=== PATIENT | female | born 1975 | race American Indian/Alaskan Native ===

== ENCOUNTER 2016-10-27 02:32 | Emergency (ER) | payer SELFPAY ==
[2016-10-27 03:24] LABS: Basophils % (Auto) 0.4 % (0.0-1.8); Eosinophils % (Auto) 1.5 % (0.0-4.3); Hematocrit 40.1 % (30.3-42.9); Hemoglobin 13.4 gm/dl (10.1-14.3); Mean Corpuscular HGB Conc 33 % (30-34); Mean Corpuscular Hemoglobin 27 pg (28-32); Mean Corpuscular Volume 82 fl (79-97); Platelet Count 303 K/mm3 (140-440); Red Cell Distribution Width 14.3 % (13.2-15.2)
[2016-10-27 03:32] LABS: INR 0.96 (0.87-1.13)
[2016-10-27 03:33] LABS: Partial Thromboplastin Time 31.4 Sec. (24.2-36.6)
[2016-10-27 03:39] LABS: Anion Gap 18 mmol/L; BUN/Creatinine Ratio 16.25; Blood Urea Nitrogen 13 mg/dL (7-17); Calcium 9.3 mg/dL (8.4-10.2); Carbon Dioxide 25 mmol/L (22-30); Chloride 104.2 mmol/L (98-107); Glucose 96 mg/dL (65-100); Potassium 3.8 mmol/L (3.6-5.0); Sodium 143 mmol/L (137-145)
[2016-10-27 03:41] LABS: Creatine Kinase MB 1.6 ng/mL (0.0-4.0)
[2016-10-27] MEDS ORDERED: TORADOL IM ONE (12:11)
--- NOTE | 2016-10-27 12:12 | Emergency Department Report ---
ED Chest Pain HPI - General Chief Complaint: Chest Pain Stated Complaint: CHEST PAIN Time Seen by Provider: 10/27/16 12:01 Source: patient, RN notes reviewed Mode of arrival: Ambulatory Limitations: No Limitations - History of Present Illness Initial Comments: This is a 41-year-old female. I have evaluated her in the past. She reports a past medical history of hypertension. She presents to the ER with right-sided chest wall pain and breast pain. The pain has been present since over 12 hours ago. It is aching, increases with palpation, deep inspiration, range of motion. It radiates to the back. There is no left-sided pain. The pain does not radiate to the arms or neck. There is no diaphoresis, there is no severe shortness of breath, there is no nausea or vomiting. There is no leg pain or leg swelling. No recent trips greater than 4 hours. No recent hospital admissions. Patient reports she is not , reports a distant history of hysterectomy. Patient reports an outpatient surgery last month for carpal tunnel release. There is no cocaine use, and the patient reports no change in exercise tolerance , and negative family history of heart disease. MD Complaint: chest pain -: Gradual Pain Location: right chest Pain Radiation: back Severity scale (0 -10): 10 Quality: aching Consistency: constant Improves With: rest Worsens With: palpation Treatments Prior to Arrival: none Aspirin use within the Past 7 Days: (0) No - Related Data On Oral Contraceptives: No Home Medications Medication Instructions Recorded Confirmed Last Taken Hydrochlorothiazide [Hctz] 12.5 mg PO QDAY 10/27/16 10/27/16 10/26/16 Previous Rx's Medication Instructions Recorded Last Taken Type Ketorolac [Toradol] 10 mg PO Q6H PRN #20 tablet 10/27/16 Unknown Rx Allergies Allergy/AdvReac Type Severity Reaction Status Date / Time Sulfa (Sulfonamide AdvReac Unknown Verified 04/23/15 03:39 Antibiotics) MILES score - Miles Score Age > 65: (0) No Aspirin use within the Past 7 Days: (0) No 3 or more CAD Risk Factors: (0) No 2 or more Angina events in past 24 hrs: (0) No Known CAD with more than 50% Stenosis: (0) No Elevated Cardiac Markers: (0) No ST Deviation Greater than 0.5mm: (0) No MILES Score: 0 ED Review of Systems ROS: Stated complaint: CHEST PAIN Other details as noted in HPI Constitutional: denies: malaise ENT: denies: dental pain, epistaxis Respiratory: see HPI Cardiovascular: chest pain Gastrointestinal: denies: abdominal pain, nausea, diarrhea Genitourinary: denies: urgency, dysuria, discharge Musculoskeletal: denies: back pain, joint swelling, arthralgia Skin: denies: rash, lesions Neurological: denies: headache, weakness, paresthesias Psychiatric: denies: anxiety, depression ED Past Medical Hx - Past Medical History Previous Medical History?: Yes Additional medical history: GERD,. Overweight - Surgical History Additional Surgical History: hysterectomy. Carpal Tunnel - Rt hand 08/2016 - Social History Smoking Status: Never Smoker Substance Use Type: Alcohol - Medications Home Medications: Home Medications Medication Instructions Recorded Confirmed Last Taken Type Hydrochlorothiazide [Hctz] 12.5 mg PO QDAY 10/27/16 10/27/16 10/26/16 History Ketorolac [Toradol] 10 mg PO Q6H PRN #20 tablet 10/27/16 Unknown Rx ED Physical Exam - General Limitations: No Limitations General appearance: alert, in no apparent distress - Head Head exam: Present: atraumatic, normocephalic - Eye Eye exam: Present: normal appearance, EOMI. Absent: nystagmus - ENT ENT exam: Present: normal exam, normal orophraynx, mucous membranes moist, normal external ear exam - Neck Neck exam: Present: normal inspection, full ROM. Absent: tenderness, meningismus - Respiratory Respiratory exam: Present: normal lung sounds bilaterally, other (the bilateral breast exam is unremarkable. There is no chest wall tenderness. There is no breast tenderness. During the breast examination, I am escorted by ER nurse Paco Adams). Absent: respiratory distress, wheezes, rales, rhonchi, stridor, chest wall tenderness, decreased breath sounds - Cardiovascular Cardiovascular Exam: Present: regular rate, normal rhythm, normal heart sounds. Absent: bradycardia, tachycardia, irregular rhythm, systolic murmur, diastolic murmur, rubs, gallop - GI/Abdominal GI/Abdominal exam: Present: soft, normal bowel sounds. Absent: distended, tenderness, guarding, rebound, rigid, pulsatile mass - Extremities Exam Extremities exam: Present: normal inspection, full ROM, normal capillary refill. Absent: tenderness, pedal edema, joint swelling, calf tenderness - Back Exam Back exam: Present: normal inspection, full ROM. Absent: tenderness, CVA tenderness (R), CVA tenderness (L), muscle spasm, paraspinal tenderness, vertebral tenderness - Neurological Exam Neurological exam: Present: alert, oriented X3, normal gait, other (Extraocular movements intact. Tongue midline. No facial droop. Facial sensation intact to light touch in the V1, V2, V3 distribution bilaterally. 5 and 5 strength in 4 extremities.. Sensation is intact to light touch in 4 extremities.). Absent : motor sensory deficit - Psychiatric Psychiatric exam: Present: normal affect, normal mood - Skin Skin exam: Present: warm, dry, intact, normal color. Absent: rash ED Course Vital Signs 10/27/16 10/27/16 10/27/16 02:36 12:07 13:51 Temperature 97.5 F L Pulse Rate 88 78 67 Respiratory 18 12 14 Rate Blood Pressure 144/105 128/90 138/94 [Right] O2 Sat by Pulse 97 100 100 Oximetry - Reevaluation(s) Reevaluation #1: 10/27/16 13:30 Differential diagnosis: Costochondritis, pleuritis, pericarditis, myocarditis, pneumonia, acute coronary syndrome, GERD, gastritis Assessment and plan: 41-year-old female with pleuritic chest pain. She is afebrile with reassuring vital signs, low risk by well's criteria, no immediate pulmonary embolus or DVT risk factors, low risk by MILES score, low risk by heart score, perc negative. D-dimer was negative, which upon is negative 3, EKG morphologically unremarkable 2, and unchanged from prior EKG. An x-ray of the chest was also negative for acute disease. Given the young age , normal EKG, normal laboratory studies, I don't believe the patient requires admission to the hospital for acute coronary syndrome risk stratification. The case is discussed with the on-call event sales manager, Dr. Saul Millan, who indicates the patient can follow-up with him in the office tomorrow for outpatient acute coronary syndrome/chest pain risk stratification. The patient understands that she is at low risk for major adverse cardiac event, and will be discharged at this time. Return precautions are reviewed. ED Medical Decision Making - Lab Data Result diagrams: 10/27/16 03:01 04/05/17 03:01 Vital Signs 10/27/16 10/27/16 02:36 12:07 Temperature 97.5 F L Pulse Rate 88 78 Respiratory 18 12 Rate Blood Pressure 144/105 128/90 [Right] O2 Sat by Pulse 97 100 Oximetry Lab Results 10/27/16 10/27/16 10/27/16 Range/Units 03:01 03:01 03:01 WBC 8.0 (4.5-11.0) K/mm3 RBC 4.90 (3.65-5.03) M/mm3 Hgb 13.4 (10.1-14.3) gm/dl Hct 40.1 (30.3-42.9) % MCV 82 (79-97) fl MCH 27 L (28-32) pg MCHC 33 (30-34) % RDW 14.3 (13.2-15.2) % Plt Count 303 (140-440) K/mm3 Lymph % (Auto) 29.7 (13.4-35.0) % [place] % (Auto) 7.7 H (0.0-7.3) % Eos % (Auto) 1.5 (0.0-4.3) % Baso % (Auto) 0.4 (0.0-1.8) % Lymph # 2.4 (1.2-5.4) K/mm3 [place] # 0.6 (0.0-0.8) K/mm3 Eos # 0.1 (0.0-0.4) K/mm3 Baso # 0.0 (0.0-0.1) K/mm3 Seg Neutrophils % 60.7 (40.0-70.0) % Seg Neutrophils # 4.8 (1.8-7.7) K/mm3 PT 12.7 (12.2-14.9) Sec. INR 0.96 (0.87-1.13) APTT 31.4 (24.2-36.6) Sec. D-Dimer (0-234) ng/mlDDU Sodium 143 (137-145) mmol/L Potassium 3.8 (3.6-5.0) mmol/L Chloride 104.2 (98-107) mmol/L Carbon Dioxide 25 (22-30) mmol/L Anion Gap 18 mmol/L BUN 13 (7-17) mg/dL Creatinine 0.8 (0.7-1.2) mg/dL Estimated GFR > 60 ml/min BUN/Creatinine Ratio 16.25 % Glucose 96 (65-100) mg/dL Calcium 9.3 (8.4-10.2) mg/dL Total Creatine Kinase (30-135) units/L CK-MB (CK-2) (0.0-4.0) ng/mL CK-MB (CK-2) Rel Index (0-4) Troponin T < 0.010 (0.00-0.029) ng/mL 10/27/16 10/27/16 10/27/16 Range/Units 03:01 06:57 08:41 WBC (4.5-11.0) K/mm3 RBC (3.65-5.03) M/mm3 Hgb (10.1-14.3) gm/dl Hct (30.3-42.9) % MCV (79-97) fl MCH (28-32) pg MCHC (30-34) % RDW (13.2-15.2) % Plt Count (140-440) K/mm3 Lymph % (Auto) (13.4-35.0) % [place] % (Auto) (0.0-7.3) % Eos % (Auto) (0.0-4.3) % Baso % (Auto) (0.0-1.8) % Lymph # (1.2-5.4) K/mm3 [place] # (0.0-0.8) K/mm3 Eos # (0.0-0.4) K/mm3 Baso # (0.0-0.1) K/mm3 Seg Neutrophils % (40.0-70.0) % Seg Neutrophils # (1.8-7.7) K/mm3 PT (12.2-14.9) Sec. INR (0.87-1.13) APTT (24.2-36.6) Sec. D-Dimer (0-234) ng/mlDDU Sodium (137-145) mmol/L Potassium (3.6-5.0) mmol/L Chloride (98-107) mmol/L Carbon Dioxide (22-30) mmol/L Anion Gap mmol/L BUN (7-17) mg/dL Creatinine (0.7-1.2) mg/dL Estimated GFR ml/min BUN/Creatinine Ratio % Glucose (65-100) mg/dL Calcium (8.4-10.2) mg/dL Total Creatine Kinase 125 (30-135) units/L CK-MB (CK-2) 1.6 (0.0-4.0) ng/mL CK-MB (CK-2) Rel Index 1.2 (0-4) Troponin T < 0.010 < 0.010 (0.00-0.029) ng/mL 10/27/16 Range/Units 12:37 WBC (4.5-11.0) K/mm3 RBC (3.65-5.03) M/mm3 Hgb (10.1-14.3) gm/dl Hct (30.3-42.9) % MCV (79-97) fl MCH (28-32) pg MCHC (30-34) % RDW (13.2-15.2) % Plt Count (140-440) K/mm3 Lymph % (Auto) (13.4-35.0) % [place] % (Auto) (0.0-7.3) % Eos % (Auto) (0.0-4.3) % Baso % (Auto) (0.0-1.8) % Lymph # (1.2-5.4) K/mm3 [place] # (0.0-0.8) K/mm3 Eos # (0.0-0.4) K/mm3 Baso # (0.0-0.1) K/mm3 Seg Neutrophils % (40.0-70.0) % Seg Neutrophils # (1.8-7.7) K/mm3 PT (12.2-14.9) Sec. INR (0.87-1.13) APTT (24.2-36.6) Sec. D-Dimer < 135 (0-234) ng/mlDDU Sodium (137-145) mmol/L Potassium (3.6-5.0) mmol/L Chloride (98-107) mmol/L Carbon Dioxide (22-30) mmol/L Anion Gap mmol/L BUN (7-17) mg/dL Creatinine (0.7-1.2) mg/dL Estimated GFR ml/min BUN/Creatinine Ratio % Glucose (65-100) mg/dL Calcium (8.4-10.2) mg/dL Total Creatine Kinase (30-135) units/L CK-MB (CK-2) (0.0-4.0) ng/mL CK-MB (CK-2) Rel Index (0-4) Troponin T (0.00-0.029) ng/mL - EKG Data -: EKG Interpreted by Me EKG shows normal: sinus rhythm Rate: normal - EKG Data When compared to previous EKG there are: no significant change 10/27/16 13:32 EKG #1 demonstrates normal sinus, 87 bpm, normal intervals, normal axis, not morphologically consistent with STEMI. EKG #2 demonstrates normal sinus, 67 bpm, normal axis, not consistent with STEMI. Both EKGs are essentially unchanged from prior EKG from 04/23/2013. - Radiology Data Radiology results: report reviewed, image reviewed X-ray of the chest is negative for acute disease Critical care attestation.: If time is entered above; I have spent that time in minutes in the direct care of this critically ill patient, excluding procedure time. ED Disposition Clinical Impression: Chest pain Disposition: DISCHARGED TO HOME OR SELFCARE Is pt being admited?: No Does the pt Need Aspirin: No Condition: Good Instructions: Chest Pain (ED), Costochondritis (ED) Additional Instructions: Laboratory studies, chest x-ray, EKG, were unremarkable. Symptoms very unlikely to be coming from acute coronary syndrome, dangerous cardiac disease. Take the pain medication as directed. Follow up with the listed event sales manager, Dr. Saul Millan tomorrow. You may either walk into the office, or contact the office and inform the office staff that I have personally spoken to Dr. Millan, and he would like to see her tomorrow as a follow-up. Please return to the ER right away with new pain, worsened pain, migration of pain, fevers or chills, nausea or vomiting, inability to tolerate liquid feeds. Prescriptions: Ketorolac [Toradol] 10 mg PO Q6H PRN #20 tablet PRN Reason: Pain Referrals: PRIMARY CAREMD [Primary Care Provider] - 3-5 Days SAUL MILLAN MD [Staff Physician] - 3-5 Days
[2016-10-27] MEDS ORDERED: TORADOL ONE (12:13)
--- NOTE | 2016-10-27 13:20 | XRay Report ---
ROUTINE CHEST, TWO VIEWS: History: Chest pain PA and lateral views demonstrate the heart and mediastinal contour to be of normal size and shape. The lungs are clear and fully expanded and the soft tissues and bony structures are normal. IMPRESSION: Normal study.
[2016-10-27 13:51] VITALS: BP 138/94
== END 2016-10-27 13:52 | disposition home or self-care (01) ==
LOC: ED 02:32
DX: R07.89 Other chest pain (principal); K21.9 Gastro-esophageal reflux disease without esophagitis; Z90.710 Acquired absence of both cervix and uterus; Z88.2 Allergy status to sulfonamides
CPT/HCPCS: 36415; 71020; 80048; 82550; 82553; 84484; 85025; 85379; 85610; 85730; 93005; 93010; 96372; 99285; J1885

== ENCOUNTER 2017-07-05 09:18 | Emergency (ER) | payer SELFPAY ==
[2017-07-05 09:45] VITALS: BP 132/93
[2017-07-05] MEDS ORDERED: TORADOL IM ONE (10:05)
[2017-07-05] MEDS ORDERED: DECADRON IM ONE (10:05)
--- NOTE | 2017-07-05 10:05 | Emergency Department Report ---
ED General Adult HPI - General Chief complaint: Extremity Problem,Nontraumatic Stated complaint: RIGHT BUTTOCK/LEG PAIN Time Seen by Provider: 07/05/17 09:50 Source: patient Mode of arrival: Ambulatory Limitations: No Limitations - History of Present Illness Initial comments: 42-year-old female with no past medical history presents to the ED complaining about right-sided lower back pain that radiates through the buttocks and down the posterior right leg for a couple days now. Patient states it is a sharp and throbbing pain with no injury. States taking medication [id number] with no relief. Denies problem ambulating or problems with bowel movements and urination. - Related Data Home Medications Medication Instructions Recorded Confirmed Last Taken Hydrochlorothiazide [Hctz] 12.5 mg PO QDAY 10/27/16 10/27/16 10/26/16 Previous Rx's Medication Instructions Recorded Last Taken Type Ketorolac [Toradol] 10 mg PO Q6H PRN #20 tablet 10/27/16 Unknown Rx Cyclobenzaprine [Flexeril] 10 mg PO TID PRN #20 tablet 07/05/17 Unknown Rx Diclofenac Sodium 75 mg PO BID #20 tablet. 07/05/17 Unknown Rx Allergies Allergy/AdvReac Type Severity Reaction Status Date / Time Sulfa (Sulfonamide AdvReac Unknown Verified 07/05/17 09:41 Antibiotics) ED Review of Systems ROS: Stated complaint: RIGHT BUTTOCK/LEG PAIN Other details as noted in HPI Constitutional: denies: chills, fever Eyes: denies: eye pain, eye discharge, vision change ENT: denies: ear pain, throat pain Respiratory: denies: cough, shortness of breath, wheezing Cardiovascular: denies: chest pain, palpitations Endocrine: no symptoms reported Gastrointestinal: denies: abdominal pain, nausea, diarrhea Genitourinary: denies: urgency, dysuria, discharge Musculoskeletal: back pain. denies: joint swelling, arthralgia Skin: denies: rash, lesions Neurological: denies: headache, weakness, paresthesias Psychiatric: denies: anxiety, depression Hematological/Lymphatic: denies: easy bleeding, easy bruising ED Past Medical Hx - Past Medical History Previous Medical History?: Yes Additional medical history: GERD,. Overweight - Surgical History Past Surgical History?: Yes Additional Surgical History: hysterectomy. Carpal Tunnel - Rt hand 08/2016. L knee and L ankle surgery - Social History Smoking Status: Never Smoker Substance Use Type: Alcohol - Medications Home Medications: Home Medications Medication Instructions Recorded Confirmed Last Taken Type Hydrochlorothiazide [Hctz] 12.5 mg PO QDAY 10/27/16 10/27/16 10/26/16 History Ketorolac [Toradol] 10 mg PO Q6H PRN #20 tablet 10/27/16 Unknown Rx Cyclobenzaprine [Flexeril] 10 mg PO TID PRN #20 tablet 07/05/17 Unknown Rx Diclofenac Sodium 75 mg PO BID #20 tablet. 07/05/17 Unknown Rx ED Physical Exam - General Limitations: No Limitations General appearance: alert, in no apparent distress - Head Head exam: Present: atraumatic, normocephalic - Eye Eye exam: Present: normal appearance - ENT ENT exam: Present: mucous membranes moist - Neck Neck exam: Present: normal inspection - Respiratory Respiratory exam: Present: normal lung sounds bilaterally. Absent: respiratory distress - Cardiovascular Cardiovascular Exam: Present: regular rate, normal rhythm. Absent: systolic murmur, diastolic murmur, rubs, gallop - GI/Abdominal GI/Abdominal exam: Present: soft, normal bowel sounds - Extremities Exam Extremities exam: Present: normal inspection - Back Exam Back exam: Present: normal inspection, tenderness, paraspinal tenderness, other (tenderness to palpation over the right buttocks.. Positive straight leg raise , right). Absent: vertebral tenderness - Neurological Exam Neurological exam: Present: alert, oriented X3 - Psychiatric Psychiatric exam: Present: normal affect, normal mood - Skin Skin exam: Present: warm, dry, intact, normal color. Absent: rash ED Course Vital Signs 07/05/17 09:41 Temperature 97.7 F Pulse Rate 88 Respiratory 18 Rate Blood Pressure 132/93 O2 Sat by Pulse 98 Oximetry ED Medical Decision Making - Medical Decision Making Patient to be given Toradol and Decadron in the ED with a medicine to go home with. No acute distress at this time. Symptoms appear to be consistent with sciatica. Critical care attestation.: If time is entered above; I have spent that time in minutes in the direct care of this critically ill patient, excluding procedure time. ED Disposition Clinical Impression: Right sided sciatica Disposition: DC-01 TO HOME OR SELFCARE Is pt being admited?: No Does the pt Need Aspirin: No Condition: Good Instructions: Sciatica (ED) Prescriptions: Cyclobenzaprine [Flexeril] 10 mg PO TID PRN #20 tablet PRN Reason: Muscle Spasm Diclofenac Sodium 75 mg PO BID #20 tablet.dr Referrals: MEHUL MARTINEZ MD [Primary Care Provider] - 3-5 Days Forms: Work/School Release Form(ED) Time of Disposition: 10:04
== END 2017-07-05 10:24 | disposition home or self-care (01) ==
LOC: ED 09:18
DX: M54.41 Lumbago with sciatica, right side (principal); Z88.2 Allergy status to sulfonamides; K21.9 Gastro-esophageal reflux disease without esophagitis
CPT/HCPCS: 96372; 99282; J1100; J1885